=== PATIENT | male | born 1980 | race Caucasian/White ===

== ENCOUNTER 2024-04-22 19:04 | Emergency (ER) | payer BC, OTHER, SELFPAY ==
[2024-04-22 19:10] VITALS: BP 162/101; PULSE 84; RESP 18; TEMP 36.8; O2SAT 99; BMI 31.2
--- NOTE | 2024-04-22 19:15 | ED_ITS ---
HPI - General Adult General Date Seen: 04/22/24 Chief complaint: Eye Problems Stated complaint: R eye unknown foreign object Time Seen by Provider: 04/22/24 19:14 History of Present Illness HPI narrative: Twenty 44-year-old male presenting to the ER today for pain and irritation in his right eye that began this evening when he took out his contact. He has no other trouble with his vision except for that he wears contacts. He has no known exposure to any chemicals or splash in his eye. He has not been working with any materials that might have gotten foreign bodies in his eye. His vision was normal today. He started having the foreign body sensation with a foreign body under his upper outer lid this evening after he took his contact out. He has a lot of tearing and redness of his eye. No change in his vision. No trouble with his left eye. He is otherwise generally healthy. No diabetes or immunosuppression. Related Data Home Medications ?Medication ?Instructions ?Recorded ?Confirmed No Known Home Medications 04/22/24 04/22/24 Allergies Allergy/AdvReac Type Severity Reaction Status Date / Time No Known Drug Allergies Allergy Verified 04/22/24 19:12 [facility] Social History Smoking Status: Never smoker Second hand tobacco smoke exposure: No How often do you have a drink containing alcohol: never AUDIT-C Alcohol total score: 0 Non-prescribed substance use: denies use Exam Narrative: Exam Narrative: Constitutional: Appears well-developed and well-nourished. Active. Non-toxic appearing. HENT: Head: Atraumatic. No signs of injury. Nose: No nasal discharge. Mouth/Throat: Mucous membranes are moist. Pharynx is normal. Tonsils symmetric. Uvula midline. Airway patent. Eyes: Visual acuity (R): 20/25, (L): 20/25 PERRLA, EOMI. No exophthalmos or enophthalmos. Conjunctiva without injection or chemosis Slit Lamp Exam: Lids: No foreign body noted in detailed exam upper and lower lids/margins Anterior Chamber: No cells or flare, No hyphema. No hypopyon. Cornea: No foreign body. Fluorescein staining: Negative Neck: Normal range of motion. Neck supple. No adenopathy. No stridor. Cardiovascular: Normal rate and regular rhythm. No murmur heard. No murmurs, rubs, or gallops. Brisk capillary refill Pulmonary/Chest: Effort normal. No stridor. No respiratory distress. No wheezes.No rhonchi. No rales. No retractions. Abdominal: Soft. Bowel sounds are normal. No distension. No mass. There is no tenderness. There is no rebound and no guarding. Musculoskeletal: Normal range of motion. No edema. No tenderness. No deformity. Neurological: Alert. Normal strength. No cranial nerve deficit or sensory deficit. Coordination normal. GCS eye subscore is 4. GCS verbal subscore is 5. GCS motor subscore is 6. Skin: Skin is warm. No rash noted. Const: Vital Signs, click to edit/add: Vital Signs - 24 hr 04/22/24 19:10 Temperature 98.2 F Pulse Rate [Right Pulse Oximeter] 84 Respiratory Rate 18 Blood Pressure [Ri ght Upper Arm] 162/101 H Pulse Oximetry 99 Oxygen Delivery Me thod Room Air Course Vital Signs Vital signs: Initial Vital Signs Temperature 98.2 F 04/22/24 19:10 Temperature Source Temporal Artery Scan 04/22/24 19:10 Pulse Rate 84 04/22/24 19:10 Respiratory Rate 18 04/22/24 19:10 Blood Pressure 162/101 H 04/22/24 19:10 Blood Pressure Mean 121 H 04/22/24 19:10 Blood Pressure Position Sitting 04/22/24 19:10 Pulse Oximetry 99 04/22/24 19:10 Oxygen Delivery Method Room Air 04/22/24 19:10 Vital Signs Temperature 98.2 F 04/22/24 19:10 Pulse Rate 84 04/22/24 19:10 Respiratory Rate 18 04/22/24 19:10 Blood Pressure 162/101 H 04/22/24 19:10 Pulse Oximetry 99 04/22/24 19:10 Oxygen Delivery Method Room Air 04/22/24 19:10 Temperature 98.2 F 04/22/24 19:10 Pulse Rate 84 04/22/24 19:10 Respiratory Rate 18 04/22/24 19:10 Blood Pressure 162/101 H 04/22/24 19:10 Pulse Oximetry 99 04/22/24 19:10 Oxygen Delivery Method Room Air 04/22/24 19:10 Medical Decision Making [facility] Narrative Medical decision making narrative: This is a pleasant 44-year-old gentleman presenting to the ER today with an acute foreign body sensation affecting his right eye apparently under the upper lid. He initially seems to feel a foreign body in the under the upper central it and then subsequently under the upper lateral lid. He is started tonight when he took out his contacts. He is fairly confident there is no other foreign bodies such as a piece of metal or wood in his eye. He is confident that he got his contact out. Visual acuity is 20/25 bilaterally with his corrective glasses. He has already taken both contacts out tonight. Evaluation does not show any evidence for corneal abrasion, corneal ulcer, or any other linear corneal abrasions that would confirm a retained foreign body under the lids. Careful evaluation of the lids including inspection through full extraocular motions, eversion of the lid, and sweeping his upper lid do not reveal any foreign body. We also placed a Fabian lens and irrigated with 400 mL saline. Despite this the foreign body sensation persists. I am concerned that there probably is a foreign body under the upper lid that is too far up to be visualized here in the ER. We will start the patient on ciprofloxacin eyedrops since he is a contact lens user to prevent any bacterial superinfection. At this point I do not see any evidence for corneal ulcer, corneal abrasion, herpetic dendrites. Anterior chamber is quiescent. No cell or flare. He will follow-up tomorrow with Ophthalmology and or return to the ER if worse. Questions answered. Patient and his are comfortable with the plan of care. Discharge Plan Discharge Clinical Impression: Foreign body of eyelid, right Patient Disposition: Home, Self-Care Condition: Stable Instructions: Eye Foreign Body (ED) Additional Instructions: Please use the ciprofloxacin eyedrops 2 drops 4 times daily until you see the eye doctor to have your eye rechecked. If you have worsening trouble with your eye such as worsening vision, worsening pain, increasing swelling, please call your eye doctor or come back to the ER right away to be rechecked. Please call [facility] ophthalmology tomorrow morning [phone] to schedule a recheck appointment to have your eye looked at tomorrow. Prescriptions: No Action No Known Home Medications Follow Up/Referrals: Provider,Not a Local [Primary Care Provider] - Stand Alone Forms: [employer] Info Instructions
--- NOTE | 2024-04-22 21:34 | ED.NURSE ---
Eye irrigation through gabriella lense administered here. Administered 400cc of fluid through gabriella lense.
--- NOTE | 2024-04-22 21:39 | ED.NURSE ---
2 drops of erythromycin administered to pt in R eye.
== END 2024-04-22 21:42 | disposition home or self-care (01) ==
PROVIDERS: Emergency Provider Emergency Medicine
DX: T15.91XA Foreign body on external eye, part unspecified, right eye, initial encounter (principal)
CPT/HCPCS: 99282; 99283; A9270

== ENCOUNTER 2025-07-05 11:50 | Outpatient (CLI) | payer BC, OTHER, SELFPAY | END 2025-07-05 11:51 | disposition home or self-care (01) | PROVIDERS: Visit Provider Internal Medicine | DX: I10 Essential (primary) hypertension (principal) | CPT/HCPCS: 80053; 80061 ==